=== PATIENT | male | born 1995 | race Caucasian/White ===

== ENCOUNTER 2025-03-08 17:48 | Emergency (ER) | payer SELFPAY ==
[2025-03-08 17:54] VITALS: BP 150/91
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
[2025-03-08 20:06] VITALS: BP 131/70
== END 2025-03-08 20:47 | disposition home or self-care (01) ==
LOC: EMR 17:48
PROVIDERS: EMERGENCY PHYSICIAN Emergency Medicine
DX: S09.90XA Unspecified injury of head, initial encounter (principal); V29.888A Rider (driver) (passenger) of other motorcycle injured in other specified transport accidents, initial encounter
CPT/HCPCS: 99284; 70450; 72125